=== PATIENT | male | born 1955 | race Caucasian/White ===

== ENCOUNTER 2017-07-17 10:29 | Inpatient (IN) | payer BC ==
[~2017-07-17] VITALS: Ht 165.1 cm; Wt 63.7 kg
[2017-07-17 11:02] LABS: CHLORIDE 86 mEq/L (99-109); POTASSIUM 3.6 mEq/L (3.7-5.4)
[2017-07-17 11:03] LABS: GLUCOSE 108 mg/dL (70-99)
[2017-07-17 11:07] LABS: CREATININE 1.3 mg/dL (0.6-1.3); GFR ESTIMATE (CALCULATED) > 59 mL/min/ (58.99-99999)
[2017-07-17 11:08] LABS: SODIUM 117 mEq/L (136-147); UREA NITROGEN (BUN) 27 mg/dL (9-23)
[2017-07-17 11:12] LABS: HEMATOCRIT 28.4 % (38.0-50.0); HEMOGLOBIN 10.2 G/DL (12.5-16.6); MCH 31.5 PG (29.0-34.0); MCHC 35.9 G/DL (30.0-36.0); MCV 87.7 FL (86-99); PLATELET COUNT 172 K/uL (156-360); RED BLOOD COUNT 3.24 M/uL (4.00-5.50); WHITE BLOOD COUNT 9.9 K/uL (4.1-10.2)
[2017-07-17 12:24] LABS: ALBUMIN 2.6 g/dL (3.2-4.8)
[2017-07-17 12:27] LABS: TOTAL PROTEIN 6.9 g/dL (6.4-8.3)
[2017-07-17 12:28] LABS: TOTAL BILIRUBIN 4.7 mg/dL (0.0-1.0)
[2017-07-17 12:30] LABS: ALKALINE PHOSPHATASE 84 IU/L (3-129)
[2017-07-17 12:31] LABS: TROP-I INTERPRETATION NEGATIVE; TROPONIN-I < 0.01 ng/mL (0.0-0.30)
[2017-07-17 12:32] LABS: ALT (GPT) 55 IU/L (3-49)
[2017-07-17 12:34] LABS: MAGNESIUM 2.3 mg/dL (1.3-2.7)
[2017-07-17 12:38] LABS: AST (GOT) 137 IU/L (2-34); DIRECT BILIRUBIN 2.9 mg/dL (0.0-0.3)
[2017-07-17] MEDS ORDERED: METOCLOPRAMIDE10 MG PO (14:10)
[2017-07-17] MEDS ORDERED: PRILOSEC20 MG PO (14:11)
[2017-07-17] MEDS ORDERED: MAVIK2 MG PO (14:11)
[2017-07-17] MEDS ORDERED: VERAPAMIL HCL180 MG PO (14:11)
[2017-07-17 14:34] LABS: INTER. NORMALIZED RATIO 1.7
[2017-07-17 14:37] LABS: PTT 38.4 SEC (25-37)
[2017-07-17 16:16] LABS: APPEARANCE SL.HAZY ((CLEAR)); BILIRUBIN NEGATIVE; BLOOD NEGATIVE; COLOR AMBER ((YELLOW)); GLUCOSE (STRIP) NEGATIVE; KETONES NEGATIVE; LEUKOCYTES NEGATIVE; NITRITE NEGATIVE; PROTEIN (STRIP) NEGATIVE; SPECIFIC GRAVITY 1.014 (1.000-1.030)
[2017-07-17 16:26] LABS: BACTERIA RARE /HPF; EPITHELIAL CELLS RARE /HPF; HYALINE CASTS 0-5 /LPF; MUCUS NONE SEEN /LPF; RED BLOOD CELLS 0-5 /HPF (0-5); UCUL ADDED? NO; WHITE BLOOD CELLS 0-5 /HPF (0-5)
[2017-07-17 17:45] VITALS: BP 129/67
[2017-07-17 18:52] LABS: CHLORIDE 90 MEQ/L (99-109); GFR ESTIMATE (CALCULATED) > 59 mL/min/ (58.99-99999); GLUCOSE 88 mg/dL (70-99); UREA NITROGEN (BUN) 23 mg/dL (9-23)
[2017-07-17 18:54] LABS: POTASSIUM 2.8 MEQ/L (3.7-5.4); SODIUM 118 MEQ/L (136-147)
[2017-07-17 20:00] VITALS: BP 112/63
[2017-07-17 21:24] LABS: CHLORIDE 91 MEQ/L (99-109); GFR ESTIMATE (CALCULATED) > 59 mL/min/ (58.99-99999); GLUCOSE 96 mg/dL (70-99); SODIUM 121 MEQ/L (136-147); UREA NITROGEN (BUN) 21 mg/dL (9-23)
[2017-07-18] VITALS (8 sets, daily range): BP systolic 82–133; BP diastolic 50–70
[2017-07-18 05:43] LABS: HEMATOCRIT 24.9 % (38.0-50.0); HEMOGLOBIN 9.2 G/DL (12.5-16.6); MCH 32.2 PG (29.0-34.0); MCHC 36.9 G/DL (30.0-36.0); MCV 87.1 FL (86-99); PLATELET COUNT 135 K/uL (156-360); RBC DIS.WIDTH-CV 18.5 % (11.8-14.6); RBC DIS.WIDTH-SD 57.6 % (39-53); RED BLOOD COUNT 2.86 M/uL (4.00-5.50); WHITE BLOOD COUNT 5.8 K/uL (4.1-10.2)
[2017-07-18 06:06] LABS: ALBUMIN 2.1 G/DL (3.2-4.8); ALKALINE PHOSPHATASE 61 IU/L (3-129); ALT (GPT) 35 IU/L (3-49); AST (GOT) 75 IU/L (2-34); CHLORIDE 95 MEQ/L (99-109); CREATININE 0.9 MG/DL (0.6-1.3); GFR ESTIMATE (CALCULATED) > 59 mL/min/ (58.99-99999); GLUCOSE 78 mg/dL (70-99); PHOSPHORUS 2.6 mg/dL (2.5-4.9); POTASSIUM 3.2 MEQ/L (3.7-5.4); SODIUM 122 MEQ/L (136-147); SODIUM 123 MEQ/L (136-147); TOTAL PROTEIN 5.5 G/DL (6.4-8.3); UREA NITROGEN (BUN) 19 mg/dL (9-23); URIC ACID 6.8 mg/dL (3.1-9.2)
[2017-07-18 13:17] LABS: CHLORIDE 95 MEQ/L (99-109); CREATININE 0.9 MG/DL (0.6-1.3); GFR ESTIMATE (CALCULATED) > 59 mL/min/ (58.99-99999); POTASSIUM 3.7 MEQ/L (3.7-5.4); SODIUM 124 MEQ/L (136-147); UREA NITROGEN (BUN) 18 mg/dL (9-23)
[2017-07-18 13:50] LABS: GLUCOSE 104 mg/dL (70-99)
[2017-07-18 18:23] LABS: TROP-I INTERPRETATION NEGATIVE; TROPONIN-I 0.01 ng/mL (0.0-0.30)
[2017-07-18 18:28] LABS: PHOSPHORUS 2.4 mg/dL (2.5-4.9)
[2017-07-18 22:34] LABS: CHLORIDE 96 MEQ/L (99-109); CREATININE 1.2 MG/DL (0.6-1.3); GFR ESTIMATE (CALCULATED) > 59 mL/min/ (58.99-99999); GLUCOSE 112 mg/dL (70-99); SODIUM 123 MEQ/L (136-147); UREA NITROGEN (BUN) 18 mg/dL (9-23)
[2017-07-18 22:39] LABS: POTASSIUM 4.6 MEQ/L (3.7-5.4)
[2017-07-19 03:50] VITALS: BP 92/55
[2017-07-19 05:11] LABS: BASOPHIL (%) 0.1 % (0-1); EOSINOPHIL (%) 0 % (0-5); HEMATOCRIT 24.3 % (38.0-50.0); HEMOGLOBIN 8.4 G/DL (12.5-16.6); IMMATURE GRANULOCYTE (%) 0.5 % (0.0-0.7); LYMPHOCYTE (%) 13.1 % (15-42); LYMPHOCYTE COUNT 1.3 K/uL (1.0-2.8); MCH 32.1 PG (29.0-34.0); MCHC 34.6 G/DL (30.0-36.0); MONOCYTE (%) 13.7 % (3-12); MONOCYTE COUNT 1.3 K/uL (0-0.8); NEUTROPHIL (%) 72.6 % (45-76); NEUTROPHIL COUNT 7.1 K/uL (1.8-6.4); PLATELET COUNT 120 K/uL (156-360); RBC DIS.WIDTH-CV 19.7 % (11.8-14.6); RBC DIS.WIDTH-SD 65.6 % (39-53); RED BLOOD COUNT 2.62 M/uL (4.00-5.50); WHITE BLOOD COUNT 9.8 K/uL (4.1-10.2)
[2017-07-19 05:15] LABS: MCV 92.7 FL (86-99)
[2017-07-19 05:34] LABS: ALBUMIN 2.6 G/DL (3.2-4.8); ALKALINE PHOSPHATASE 53 IU/L (3-129); ALT (GPT) 38 IU/L (3-49); AST (GOT) 84 IU/L (2-34); CHLORIDE 101 MEQ/L (99-109); GLUCOSE 111 mg/dL (70-99); SODIUM 123 MEQ/L (136-147); TOTAL BILIRUBIN 4.8 MG/DL (0.0-1.0); TOTAL PROTEIN 5.6 G/DL (6.4-8.3); UREA NITROGEN (BUN) 24 mg/dL (9-23)
[2017-07-19 05:37] LABS: CREATININE 1.8 MG/DL (0.6-1.3); GFR ESTIMATE (CALCULATED) 41 mL/min/ (58.99-99999); POTASSIUM 5.9 MEQ/L (3.7-5.4)
[2017-07-19 07:36] VITALS: BP 99/72
[2017-07-19 08:51] LABS: THYROTROPIN (TSH) 4.6 MIU/L (0.4-5.5)
[2017-07-19 10:31] LABS: COMMENTS - BLOOD GASES A+C+; DEVICE RA; SITE RR
[2017-07-19 10:32] LABS: BASE EXCESS -7.4 mEq/L (-3 to +3); BICARBONATE 15.6 mEq/L (22-26); CARBOXY HGB 1.6 % (0-5); METHEMOGLOBIN 1.1 % (0-1.5); O2 SATURATION (CALCULATED) 96.6 % (95-99); PCO2 23 mm Hg (35-45); PO2 84 mm Hg (80-100); pH 7.44 (7.35-7.45)
[2017-07-19 11:50] VITALS: BP 99/59
[2017-07-19 11:55] LABS: HEPATITIS C ANTIBODY Nonreactive
[2017-07-19 14:15] LABS: CHLORIDE 105 MEQ/L (99-109); CREATININE 1.5 MG/DL (0.6-1.3); GFR ESTIMATE (CALCULATED) 50 mL/min/ (58.99-99999); GLUCOSE 101 mg/dL (70-99); SODIUM 128 MEQ/L (136-147); UREA NITROGEN (BUN) 23 mg/dL (9-23)
[2017-07-19 14:16] LABS: POTASSIUM 4.5 MEQ/L (3.7-5.4)
[2017-07-19 16:18] VITALS: BP 135/67
[2017-07-19 20:56] VITALS: BP 140/78
[2017-07-19 21:29] LABS: CHLORIDE 103 MEQ/L (99-109); CREATININE 1.2 MG/DL (0.6-1.3); GFR ESTIMATE (CALCULATED) > 59 mL/min/ (58.99-99999); GLUCOSE 89 mg/dL (70-99); POTASSIUM 3.9 MEQ/L (3.7-5.4); SODIUM 127 MEQ/L (136-147); UREA NITROGEN (BUN) 22 mg/dL (9-23)
[2017-07-20] VITALS (7 sets, daily range): BP systolic 133–165; BP diastolic 69–94
[2017-07-20 05:28] LABS: BASOPHIL (%) 0.3 % (0-1); EOSINOPHIL COUNT 0.1 K/uL (0-0.3); HEMATOCRIT 24.3 % (38.0-50.0); HEMOGLOBIN 8.3 G/DL (12.5-16.6); IMMATURE GRANULOCYTE (%) 0.3 % (0.0-0.7); LYMPHOCYTE (%) 14.6 % (15-42); LYMPHOCYTE COUNT 0.9 K/uL (1.0-2.8); MCH 31.8 PG (29.0-34.0); MCHC 34.2 G/DL (30.0-36.0); MCV 93.1 FL (86-99); MONOCYTE (%) 11.5 % (3-12); MONOCYTE COUNT 0.7 K/uL (0-0.8); NEUTROPHIL (%) 71.3 % (45-76); NEUTROPHIL COUNT 4.2 K/uL (1.8-6.4); PLATELET COUNT 121 K/uL (156-360); RBC DIS.WIDTH-CV 19.6 % (11.8-14.6); RBC DIS.WIDTH-SD 65.6 % (39-53); RED BLOOD COUNT 2.61 M/uL (4.00-5.50); WHITE BLOOD COUNT 5.9 K/uL (4.1-10.2)
[2017-07-20 05:58] LABS: ALBUMIN 3.4 G/DL (3.2-4.8); ALKALINE PHOSPHATASE 51 IU/L (3-129); ALT (GPT) 37 IU/L (3-49); AST (GOT) 79 IU/L (2-34); CHLORIDE 102 MEQ/L (99-109); CREATININE 1.1 MG/DL (0.6-1.3); GFR ESTIMATE (CALCULATED) > 59 mL/min/ (58.99-99999); GLUCOSE 87 mg/dL (70-99); MAGNESIUM 1.8 mg/dl (1.3-2.7); POTASSIUM 4.1 MEQ/L (3.7-5.4); SODIUM 132 MEQ/L (136-147); TOTAL BILIRUBIN 4.1 MG/DL (0.0-1.0); TOTAL PROTEIN 6.2 G/DL (6.4-8.3); UREA NITROGEN (BUN) 19 mg/dL (9-23)
[2017-07-21 04:00] VITALS: BP 149/82
[2017-07-21 08:21] VITALS: BP 125/86
[2017-07-21 11:30] VITALS: BP 132/82
[2017-07-21 11:36] LABS: HEMATOCRIT 25.4 % (38.0-50.0); HEMOGLOBIN 8.7 G/DL (12.5-16.6); MCH 32.2 PG (29.0-34.0); MCHC 34.3 G/DL (30.0-36.0); MCV 94.1 FL (86-99); PLATELET COUNT 113 K/uL (156-360); RBC DIS.WIDTH-CV 20.2 % (11.8-14.6); WHITE BLOOD COUNT 6.9 K/uL (4.1-10.2)
[2017-07-21 12:03] LABS: ALBUMIN 3.3 G/DL (3.2-4.8); ALKALINE PHOSPHATASE 54 IU/L (3-129); ALT (GPT) 38 IU/L (3-49); AST (GOT) 88 IU/L (2-34); CHLORIDE 100 MEQ/L (99-109); CREATININE 0.9 MG/DL (0.6-1.3); GFR ESTIMATE (CALCULATED) > 59 mL/min/ (58.99-99999); POTASSIUM 3.6 MEQ/L (3.7-5.4); SODIUM 133 MEQ/L (136-147); TOTAL PROTEIN 6.3 G/DL (6.4-8.3); UREA NITROGEN (BUN) 16 mg/dL (9-23)
[2017-07-21 12:05] LABS: GLUCOSE 112 mg/dL (70-99); TOTAL BILIRUBIN 5.6 MG/DL (0.0-1.0)
[2017-07-21 15:38] VITALS: BP 133/83
[2017-07-21 19:00] VITALS: BP 113/72
[2017-07-21 23:00] VITALS: BP 122/70
[2017-07-22 03:30] VITALS: BP 119/65
[2017-07-22 07:25] VITALS: BP 129/74
[2017-07-22 11:25] VITALS: BP 109/69
[2017-07-22 15:20] LABS: HEMATOCRIT 24.6 % (38.0-50.0); HEMOGLOBIN 8.4 G/DL (12.5-16.6); MCH 31.7 PG (29.0-34.0); MCHC 34.1 G/DL (30.0-36.0); MCV 92.8 FL (86-99); PLATELET COUNT 85 K/uL (156-360); RBC DIS.WIDTH-CV 19.9 % (11.8-14.6); RBC DIS.WIDTH-SD 66.8 % (39-53); RED BLOOD COUNT 2.65 M/uL (4.00-5.50); WHITE BLOOD COUNT 6.8 K/uL (4.1-10.2)
[2017-07-22 15:42] LABS: CHLORIDE 101 MEQ/L (99-109); CREATININE 0.8 MG/DL (0.6-1.3); GFR ESTIMATE (CALCULATED) > 59 mL/min/ (58.99-99999); GLUCOSE 103 mg/dL (70-99); POTASSIUM 3.2 MEQ/L (3.7-5.4); SODIUM 130 MEQ/L (136-147); UREA NITROGEN (BUN) 15 mg/dL (9-23)
[2017-07-22 17:13] VITALS: BP 136/81
[2017-07-22 19:00] VITALS: BP 144/85
[2017-07-22 22:30] VITALS: BP 111/67
[2017-07-23 04:30] VITALS: BP 125/72
[2017-07-23 05:55] LABS: HEMATOCRIT 23.8 % (38.0-50.0); HEMOGLOBIN 8.5 G/DL (12.5-16.6); MCH 32.7 PG (29.0-34.0); MCHC 35.7 G/DL (30.0-36.0); MCV 91.5 FL (86-99); PLATELET COUNT 93 K/uL (156-360); RBC DIS.WIDTH-CV 19.9 % (11.8-14.6); RBC DIS.WIDTH-SD 66.1 % (39-53); WHITE BLOOD COUNT 6.3 K/uL (4.1-10.2)
[2017-07-23 06:34] LABS: ALBUMIN 2.7 G/DL (3.2-4.8); ALKALINE PHOSPHATASE 52 IU/L (3-129); ALT (GPT) 34 IU/L (3-49); AST (GOT) 70 IU/L (2-34); CHLORIDE 101 MEQ/L (99-109); CREATININE 0.7 MG/DL (0.6-1.3); GFR ESTIMATE (CALCULATED) > 59 mL/min/ (58.99-99999); GLUCOSE 81 mg/dL (70-99); POTASSIUM 3.3 MEQ/L (3.7-5.4); SODIUM 132 MEQ/L (136-147); TOTAL BILIRUBIN 6.5 MG/DL (0.0-1.0); TOTAL PROTEIN 5.7 G/DL (6.4-8.3); UREA NITROGEN (BUN) 13 mg/dL (9-23)
[2017-07-23 06:55] LABS: BASOPHIL (%) 0.6 % (0-1); EOSINOPHIL (%) 2.2 % (0-5); EOSINOPHIL COUNT 0.1 K/uL (0-0.3); IMMATURE GRANULOCYTE (%) 0.3 % (0.0-0.7); LYMPHOCYTE (%) 23.5 % (15-42); LYMPHOCYTE COUNT 1.5 K/uL (1.0-2.8); MONOCYTE (%) 11.4 % (3-12); MONOCYTE COUNT 0.7 K/uL (0-0.8); NEUTROPHIL COUNT 3.9 K/uL (1.8-6.4); PLAT.SUFFICIENCY DECREASED
[2017-07-23 07:08] VITALS: BP 128/79
[2017-07-23 11:29] VITALS: BP 136/82
[2017-07-23] MEDS ORDERED: SPIRONOLACTONE25 MG PO (11:51)
[2017-07-23] MEDS ORDERED: DOCUSATE SODIU100 MG PO (11:51)
[2017-07-23] MEDS ORDERED: FOLIC ACID1 MG PO (11:52)
[2017-07-23] MEDS ORDERED: Thiamine,Vitamin B1 PO (11:52)
== END 2017-07-23 14:00 | disposition home health service (06) | DRG 641 ==
LOC: EME 10:29 → EDOF 14:23 → 5EAST 14:23 → ENRESERV 14:27 → 5EAST 17:20 → ENRESERV 07-18 18:00 → 4EAST 07-18 18:02 → ENRESERV 07-21 11:36 → CANRESERV 07-21 11:43 → ENRESERV 07-21 11:43 → 4EAST 07-23 14:00
PROVIDERS: Family Medicine; Internal Medicine; Internal Medicine Nephrology; Nurse Practitioner Family
DX: E87.1 Hypo-osmolality and hyponatremia (principal); N17.9 Acute kidney failure, unspecified; N14.1 Nephropathy induced by other drugs, medicaments and biological substances; T50.8X5A Adverse effect of diagnostic agents, initial encounter; E87.6 Hypokalemia; F10.20 Alcohol dependence, uncomplicated; E83.51 Hypocalcemia; E88.09 Other disorders of plasma-protein metabolism, not elsewhere classified; R00.1 Bradycardia, unspecified; I95.9 Hypotension, unspecified; E86.0 Dehydration; E87.2 Acidosis; D69.6 Thrombocytopenia, unspecified; E87.5 Hyperkalemia; K70.11 Alcoholic hepatitis with ascites; K70.0 Alcoholic fatty liver; D64.9 Anemia, unspecified; R79.1 Abnormal coagulation profile; I10 Essential (primary) hypertension; K21.9 Gastro-esophageal reflux disease without esophagitis; R29.6 Repeated falls
CPT/HCPCS: 36600; 71046; 74177; 76700; 80048; 80048 91; 80053; 80069; 80076; 81003; 82010; 82140; 82533 91; 82803; 82948; 83605; 83630; 83735; 83935; 84100; 84300; 84443; 84484; 84550; 85025; 85027; 85610; 85730; 86803; 87506; 92526 GN; 92610 GN; 93005; 99281; 99285; J1644; J1940; J7030; J7040; J7070; P9047

== ENCOUNTER → 2017-08-28 | Outpatient (CLI) | payer BC ==
[~2017-08-28] MED LIST: ALDACTONE50 MG PO; DOCUSATE SODIU100 MG PO; FOLIC ACID1 MG PO; KRISTALOSE10 GM PO; MAVIK2 MG PO; METOCLOPRAMIDE10 MG PO; PRILOSEC20 MG PO; SPIRONOLACTONE25 MG PO; Thiamine,Vitamin B1 PO; VERAPAMIL HCL180 MG PO
== END | disposition home or self-care (01) ==
LOC: RAD 09:46
PROC: 0W9G3ZZ Drainage of Peritoneal Cavity, Percutaneous Approach (ICD-10-PCS; principal; 2017-08-28)
DX: K70.31 Alcoholic cirrhosis of liver with ascites (principal)
CPT/HCPCS: 49083

== ENCOUNTER → 2017-09-20 | Outpatient (CLI) | payer BC | END | disposition home or self-care (01) | LOC: RAD 12:43 | PROC: 0W9G3ZZ Drainage of Peritoneal Cavity, Percutaneous Approach (ICD-10-PCS; principal; 2017-09-20) | DX: R18.8 Other ascites (principal) | CPT/HCPCS: 49083 ==